=== PATIENT | male | born 1945 | race Caucasian/White ===

== ENCOUNTER 2016-12-25 12:25 | Emergency (ER) | payer MEDICARE ==
[~2016-12-25] VITALS: Ht 175.3 cm; Wt 88.0 kg
[2016-12-25 14:00] VITALS: BP 158/93
[2016-12-25] MEDS ORDERED: TETANUS-DIPTH-ACEL PERTUSSIS 0.5ML SYRG IM ONE (17:00)
[2016-12-25] MEDS ORDERED: NEOMYCIN-BACITRACIN-POLYM UNITDOSE PKG TOP OINT TOP ONE (17:00)
[2016-12-25] MEDS ORDERED: LIDOCAINE 2%HCL (LOCAL ANESTH.) INJ 20ML MDV ID ONE (17:00)
[2016-12-25] MEDS ORDERED: cefTRIAXone 1GM/50ML D5W 50 ML IV ONE (18:00)
== END 2016-12-25 19:10 | disposition home or self-care (01) ==
LOC: ER 12:33
DX: S61.213A Laceration without foreign body of left middle finger without damage to nail, initial encounter (principal); S61.215A Laceration without foreign body of left ring finger without damage to nail, initial encounter; Z23 Encounter for immunization; X58.XXXA Exposure to other specified factors, initial encounter; Y93.89 Activity, other specified; Y99.8 Other external cause status; Y92.69 Other specified industrial and construction area as the place of occurrence of the external cause
CPT/HCPCS: 12042; 73130; 90471; 90715; 96365; 99284; J0696

== ENCOUNTER 2016-12-27 08:10 | Emergency (ER) | payer MEDICARE ==
[~2016-12-27] VITALS: Ht 175.3 cm; Wt 88.0 kg
[2016-12-27 08:25] VITALS: BP 144/79
== END 2016-12-27 09:21 | disposition home or self-care (01) ==
LOC: ER 08:15
DX: S61.213D Laceration without foreign body of left middle finger without damage to nail, subsequent encounter (principal); S61.215D Laceration without foreign body of left ring finger without damage to nail, subsequent encounter; Z48.01 Encounter for change or removal of surgical wound dressing

== ENCOUNTER 2016-12-30 08:26 | Emergency (ER) | payer MEDICARE ==
[~2016-12-30] VITALS: Ht 175.3 cm; Wt 88.0 kg
[2016-12-30 08:56] VITALS: BP 146/81
== END 2016-12-30 09:13 | disposition home or self-care (01) ==
LOC: ER 08:26
DX: S61.213D Laceration without foreign body of left middle finger without damage to nail, subsequent encounter (principal); S61.217D Laceration without foreign body of left little finger without damage to nail, subsequent encounter; Z48.01 Encounter for change or removal of surgical wound dressing

== ENCOUNTER 2017-01-05 09:35 | Emergency (ER) | payer MEDICARE ==
[~2017-01-05] VITALS: Ht 175.3 cm; Wt 88.0 kg
[2017-01-05 11:09] VITALS: BP 137/79
== END 2017-01-05 11:56 | disposition home or self-care (01) ==
LOC: ER 09:35
DX: S61.213D Laceration without foreign body of left middle finger without damage to nail, subsequent encounter (principal); Z48.02 Encounter for removal of sutures